=== PATIENT | female | born 1955 | race Caucasian/White ===

== ENCOUNTER 2018-07-07 07:08 | Observation (INO) | payer BC ==
[~2018-07-07] VITALS: Ht 162.6 cm; Wt 72.4 kg
[2018-07-07] MEDS ORDERED: SODIUM CHLORIDE FLUSH 10ML SYR IVF ONE (08:00)
[2018-07-07 08:06] LABS: BASOPHILS # (AUTO) 0.03 x10^3/uL (0-0.1); BASOPHILS % (AUTO) 0 % (0-1); EOSINOPHILS # (AUTO) 0.08 x10^3/uL (0-0.4); EOSINOPHILS % (AUTO) 1 % (1-7); LYMPHOCYTES # (AUTO) 1.21 x10^3/uL (1-3.4); LYMPHOCYTES % (AUTO) 16 % (22-44); MD NO; MEAN CORPUSCULAR HEMOGLOBIN 30.8 pg (27.0-34.8); MEAN CORPUSCULAR HGB CONC 34.1 g/dL (32.4-35.8); MEAN CORPUSCULAR VOLUME 90.4 fL (80-100); MEAN PLATELET VOLUME 7.6 fL (7.4-10.4); MONOCYTES # (AUTO) 0.82 x10^3/uL (0.2-0.8); MONOCYTES % (AUTO) 11 % (2-9); NEUTROPHILS # (AUTO) 5.33 x10^3/uL (1.8-6.8); NEUTROPHILS % (AUTO) 71 % (42-75); PLATELET COUNT 316 x10^3/uL (130-400); RED BLOOD COUNT 4.19 x10^6/uL (3.82-5.3)
[2018-07-07 08:15] LABS: PROTHROMBIN TIME 10.6 Seconds (9.6-11.5)
[2018-07-07 08:16] LABS: ALBUMIN 3.3 g/dL (3.4-5.0); ANION GAP 7 mmol/L (5-15); CALCIUM 7.9 mg/dL (8.5-10.1); CHLORIDE 105 mmol/L (98-107); CREATININE 0.57 mg/dL (0.55-1.02)
[2018-07-07 08:20] LABS: TROPONIN I < 0.015 ng/mL (0.000-0.045)
[2018-07-07] MEDS ORDERED: SODIUM CHLORIDE FLUSH 10ML SYR IVF PRN (08:30)
[2018-07-07 09:29] VITALS: BP 113/77
[2018-07-07] MEDS ORDERED: ONDANSETRON 2MG/ML, 2ML IVPush PRN (09:30)
[2018-07-07] MEDS ORDERED: ONDANSETRON ODT 4 MG PO PRN (09:30)
[2018-07-07] MEDS ORDERED: LABETALOL 5MG/ML, 20ML IVPush PRN (09:30)
[2018-07-07] MEDS ORDERED: PLEASE ENTER HEIGHT AND WEIGHT MC SCH (09:30)
[2018-07-07] MEDS: PLEASE ENTER ALLERGIES MC SCH ×2 (09:30→10:06)
[2018-07-07] MEDS ORDERED: NITROGLYCERIN 0.4 MG BOTTLE (25 TABS) SL ONE (09:43)
[2018-07-07 09:55] VITALS: BP 106/72
[2018-07-07] MEDS ORDERED: NITROGLYCERIN SINGLE TAB 0.4 MG SL PRN (10:00)
[2018-07-07 10:48] LABS: CHOL/HDL RATIO 2.7; LDL/HDL RATIO 1.5 (0.5-3.0)
[2018-07-07 11:04] LABS: HEMOGLOBIN A1C 5.9 % (4.2-6.3)
[2018-07-07] MEDS ORDERED: OMNIPAQUE 350 MG/ML, 100ML BOTTLE ONE (11:12)
[2018-07-07] MEDS ORDERED: CARB1TAB47 PO (12:27)
[2018-07-07] MEDS ORDERED: ENTA200T22 PO (12:35)
[2018-07-07] MEDS ORDERED: [UNRECOGNIZED DRUG - CODE] PO (12:37)
[2018-07-07] MEDS ORDERED: OXCA300O5 PO (12:40)
[2018-07-07] MEDS ORDERED: ENTACAPONE 200 MG TABLET PO SCH (14:00)
[2018-07-07] MEDS ORDERED: CARBIDOPA/LEVODOPA 25 MG/100 MG TABLET PO SCH ×2 (14:00→15:00)
[2018-07-07] MEDS ORDERED: IBUPROFEN 200 MG TABLET ONE (14:03)
[2018-07-07] MEDS: IBUPROFEN 200 MG TABLET PO PRN ×2 (14:05→21:20)
[2018-07-07 14:06] LABS: HCT (SEDRATE) 40.2 % (34.6-47.8)
[2018-07-07 14:23] LABS: TROPONIN I < 0.015 ng/mL (0.000-0.045)
[2018-07-07] MEDS ORDERED: CARBIDOPA MC SCH (14:30)
[2018-07-07] MEDS ORDERED: LAMOTRIGINE MC SCH (14:30)
[2018-07-07] MEDS ORDERED: LEVODOPA MC SCH (14:30)
[2018-07-07] MEDS ORDERED: ENTACAPONE MC SCH (14:30)
[2018-07-07] MEDS ORDERED: OXCARBAZEPINE MC SCH (14:30)
[2018-07-07 14:59] VITALS: BP 111/74
[2018-07-07 17:38] LABS: TROPONIN I < 0.015 ng/mL (0.000-0.045)
[2018-07-07] MEDS: CARBIDOPA/LEVODOPA 25 MG/100 MG TABLET HOMEMEDPO SCH ×2 (18:00→21:00)
[2018-07-07 19:26] VITALS: BP 125/83
[2018-07-07] MEDS ORDERED: FAMOTIDINE 20 MG/2 ML IVPush SCH (21:00)
[2018-07-07] MEDS: LAMOTRIGINE 100 MG TABLET HOMEMEDPO SCH (21:00)
[2018-07-07] MEDS: OXCARBAZEPINE 300MG TABLET PO SCH (21:00)
[2018-07-07] MEDS ORDERED: FAMOTIDINE 20 MG TABLET PO SCH (21:00)
[2018-07-07] MEDS: ENTACAPONE 200 MG TABLET HOMEMEDPO SCH (21:00)
[2018-07-08 01:49] VITALS: BP 102/76
[2018-07-08 05:02] LABS: ALBUMIN 3.1 g/dL (3.4-5.0); ANION GAP 6 mmol/L (5-15); CALCIUM 8.5 mg/dL (8.5-10.1); CHLORIDE 103 mmol/L (98-107)
[2018-07-08 05:14] LABS: ALANINE AMINOTRANSFERASE 12 U/L (12-78); ALKALINE PHOSPHATASE 66 U/L (45-117); BILIRUBIN,TOTAL 0.6 mg/dL (0.2-1.0); CREATININE 0.73 mg/dL (0.55-1.02); TOTAL PROTEIN 6.7 g/dL (6.4-8.2)
[2018-07-08 05:52] LABS: BASOPHILS # (AUTO) 0.03 x10^3/uL (0-0.1); BASOPHILS % (AUTO) 0 % (0-1); EOSINOPHILS # (AUTO) 0.11 x10^3/uL (0-0.4); EOSINOPHILS % (AUTO) 1 % (1-7); LYMPHOCYTES # (AUTO) 1.69 x10^3/uL (1-3.4); LYMPHOCYTES % (AUTO) 19 % (22-44); MD NO; MEAN CORPUSCULAR HEMOGLOBIN 31.3 pg (27.0-34.8); MEAN CORPUSCULAR HGB CONC 34.2 g/dL (32.4-35.8); MEAN CORPUSCULAR VOLUME 91.6 fL (80-100); MEAN PLATELET VOLUME 8.2 fL (7.4-10.4); MONOCYTES # (AUTO) 1.24 x10^3/uL (0.2-0.8); MONOCYTES % (AUTO) 14 % (2-9); NEUTROPHILS # (AUTO) 6.04 x10^3/uL (1.8-6.8); NEUTROPHILS % (AUTO) 66 % (42-75); PLATELET COUNT 298 x10^3/uL (130-400); RED BLOOD COUNT 4.02 x10^6/uL (3.82-5.3); RED CELL DISTRIBUTION WIDTH 12.8 % (9.6-15.2)
[2018-07-08] MEDS: CARBIDOPA/LEVODOPA 25 MG/100 MG TABLET HOMEMEDPO SCH ×2 (06:00→09:00)
[2018-07-08] MEDS ORDERED: ASPIRIN 81 MG TABLET EC PO SCH (06:00)
[2018-07-08] MEDS: LAMOTRIGINE 100 MG TABLET HOMEMEDPO SCH (06:00)
[2018-07-08] MEDS: OXCARBAZEPINE 300MG TABLET PO SCH (06:00)
[2018-07-08] MEDS: IBUPROFEN 200 MG TABLET PO PRN (06:37)
[2018-07-08] MEDS: ENTACAPONE 200 MG TABLET HOMEMEDPO SCH (07:00)
[2018-07-08 07:03] VITALS: BP 111/75
[2018-07-08] MEDS ORDERED: REGADENOSON 0.4 MG/5 ML SYRINGE ONE (08:48)
[2018-07-08 12:27] VITALS: BP 112/75
[2018-07-08] MEDS ORDERED: IBUP-1484 PO (14:28)
[2018-07-08] MEDS ORDERED: FAMO20TA7 PO (14:28)
== END 2018-07-08 15:54 | disposition home or self-care (01) ==
LOC: ED 08:20 → UNDOADMOB 08:21 → 5SO 08:21 → INTOOBSV 08:21 → ED 08:34 → 5SO 10:04 → UNDODISOB 07-08 15:54
PROVIDERS: ADMIT Internal Medicine; ATTEND Internal Medicine
DX: R07.9 Chest pain, unspecified (principal); G20 Parkinson's disease; I48.92 Unspecified atrial flutter; G40.909 Epilepsy, unspecified, not intractable, without status epilepticus; Z83.3 Family history of diabetes mellitus; Z90.710 Acquired absence of both cervix and uterus
CPT/HCPCS: 36415; 71045; 71275; 78452; 80048; 80053; 80061; 82040; 83036; 83605; 83735; 83880; 84100; 84145; 84439; 84443; 84484; 85025; 85610; 85651; 85730; 86140; 93005; 93017; 93306; 99284; A9502; C9898; G0378; J2785; Q9967; 99285